=== PATIENT | male | born 1985 | race Caucasian/White ===

== ENCOUNTER 2025-02-12 20:57 | Emergency (ER) | payer BC ==
[~2025-02-12] VITALS: Ht 177.8 cm; Wt 81.6 kg
[2025-02-12 21:15] LABS: BASO # 0.1 10*3/uL (0.0-0.1); BASO % 0.5 % (0.0-1.0); EOS # 0.1 10*3/uL (0.0-0.4); HEMATOCRIT 43.6 % (42.0-52.0); MEAN CELL VOLUME 88.3 fl (80.0-94.0); MEAN CORPUSCULAR HGB 29.8 pg (27.0-31.0); MEAN CORPUSCULAR HGB CONC 33.7 g/dl (33.0-37.0); MEAN PLATELET VOLUME 9.8 fl (9.6-12.3); MONO # 0.8 10*3/uL (0.1-1.0); MONO % 8.8 % (3.0-9.0); NEUT # 5.8 10*3/uL (2.3-7.9); NEUT % 60.6 % (47.0-73.0); PLATELET COUNT AUTOMATED 297 10*3/uL (130-400); RED BLOOD COUNT 4.94 10*6/uL (4.50-5.90); RED CELL DISTRI WIDTH 13.2 % (0-14.5); WHITE BLOOD COUNT 9.6 10*3/uL (4.8-10.8)
[2025-02-12 21:36] LABS: ALKALINE PHOSPHATASE 76 U/L (46-116); BUN 25 mg/dl (9-23); CHLORIDE 107 mmol/L (98-107); POTASSIUM 3.7 mmol/L (3.4-5.1); SGPT/ALT 24 U/L (5-49); TOTAL PROTEIN 7.8 gm/dL (6.0-8.0)
[2025-02-12 21:37] LABS: ETHYL ALCOHOL < 3.0 mg/dl (<3)
[2025-02-12 22:44] LABS: BILIRUBIN Negative (Negative); BLOOD Negative (Negative); CLARITY Clear (Clear); COLOR Yellow (Yellow); GLUCOSE Negative (Negative); KETONE Trace (Negative); LEUKO ESTERASE Negative (Negative); NITRITE Negative (Negative); PH 5.5 (4.5-8.0); UROBILINOGEN 0.2 E.U./dl (0.0-1.0)
[2025-02-12] MEDS ORDERED: hydrOXYzine pamoate 25 MG CAP PO ONE (22:45)
[2025-02-12 22:49] LABS: URINE AMPHETAMINES Negative (1000ng/ml); URINE BARBITURATES Negative (200ng/ml); URINE BENZODIAZEPINES Negative (200ng/ml); URINE CANNABINOIDS (THC) Positive (50ng/ml); URINE COCAINE Negative (300ng/ml); URINE METHADONE Negative (300ng/ml); URINE OPIATES Negative (300ng/ml); URINE PHENCYCLIDINE Negative (25ng/ml)
[2025-02-12 22:50] LABS: EPITHELIAL CELLS 0-2; MUCOUS TRACE; WBC 0-2 wbc/hpf (0-5)
[2025-02-13] MEDS ORDERED: PROPRANOLOL HCL60 MG PO (08:15)
[2025-02-13] MEDS ORDERED: PROPRANOLOL HYDROCHLORIDE PO ONE (09:10)
== END 2025-02-13 09:46 ==
LOC: ED 20:57
PROVIDERS: Internal Medicine
DX: F31.9 Bipolar disorder, unspecified (principal)

== ENCOUNTER 2025-02-23 02:26 | Emergency (ER) | payer BC ==
[~2025-02-23 02:26] MED LIST: PROPRANOLOL HCL60 MG PO
[2025-02-23 02:45] LABS: BASO % 0.3 % (0.0-1.0); EOS % 0.5 % (1.0-4.0); MEAN CELL VOLUME 89.6 fl (80.0-94.0); MEAN CORPUSCULAR HGB 29.6 pg (27.0-31.0); MEAN CORPUSCULAR HGB CONC 33.1 g/dl (33.0-37.0); MEAN PLATELET VOLUME 9.8 fl (9.6-12.3); MONO # 0.5 10*3/uL (0.1-1.0); MONO % 9.2 % (3.0-9.0); NEUT # 3.2 10*3/uL (2.3-7.9); NEUT % 54.9 % (47.0-73.0); PLATELET COUNT AUTOMATED 201 10*3/uL (130-400); RED BLOOD COUNT 4.69 10*6/uL (4.50-5.90); RED CELL DISTRI WIDTH 13.2 % (0-14.5); WHITE BLOOD COUNT 5.9 10*3/uL (4.8-10.8)
[2025-02-23 03:02] LABS: BILIRUBIN Negative (Negative); BLOOD Negative (Negative); CLARITY Clear (Clear); COLOR Yellow (Yellow); GLUCOSE Negative (Negative); KETONE Trace (Negative); LEUKO ESTERASE Negative (Negative); NITRITE Negative (Negative)
[2025-02-23 03:06] LABS: ALKALINE PHOSPHATASE 79 U/L (46-116); BUN 14 mg/dl (9-23); CHLORIDE 105 mmol/L (98-107); POTASSIUM 3.3 mmol/L (3.4-5.1); SGPT/ALT 123 U/L (5-49); TOTAL PROTEIN 7.5 gm/dL (6.0-8.0)
[2025-02-23 03:07] LABS: ETHYL ALCOHOL < 3.0 mg/dl (<3)
[2025-02-23 03:09] LABS: URINE AMPHETAMINES Negative (1000ng/ml); URINE BARBITURATES Negative (200ng/ml); URINE BENZODIAZEPINES Negative (200ng/ml); URINE CANNABINOIDS (THC) Positive (50ng/ml); URINE COCAINE Negative (300ng/ml); URINE METHADONE Negative (300ng/ml); URINE OPIATES Negative (300ng/ml); URINE PHENCYCLIDINE Negative (25ng/ml)
[2025-02-23 03:32] LABS: RBC 0-2 rbc/hpf (0-2); WBC 0-2 wbc/hpf (0-5)
[2025-02-23] MEDS ORDERED: LORazepam 2 MG TAB PO ONE (04:15)
[2025-02-23] MEDS ORDERED: DIVALPROEX SOD250 MG PO (10:13)
[2025-02-23] MEDS ORDERED: DIVALPROEX SOD125 MG PO (10:14)
[2025-02-23] MEDS ORDERED: TRAZODONE50 MG PO (10:14)
[2025-02-23] MEDS ORDERED: HYDROXYZINE PAM50 MG PO (10:16)
[2025-02-23] MEDS ORDERED: PRISTIQ100 MG PO (10:16)
== END 2025-02-23 05:54 | disposition left against medical advice (07) ==
LOC: ED 02:26
PROVIDERS: Internal Medicine
DX: E87.6 Hypokalemia (principal); R74.01 Elevation of levels of liver transaminase levels; Z53.29 Procedure and treatment not carried out because of patient's decision for other reasons

== ENCOUNTER 2025-02-23 09:37 | Emergency (ER) | payer BC ==
[~2025-02-23] VITALS: Wt 86.2 kg
[2025-02-23 09:54] LABS: BASO % 0.3 % (0.0-1.0); EOS % 0.1 % (1.0-4.0); MEAN CELL VOLUME 89.2 fl (80.0-94.0); MEAN CORPUSCULAR HGB 29.9 pg (27.0-31.0); MEAN CORPUSCULAR HGB CONC 33.5 g/dl (33.0-37.0); MEAN PLATELET VOLUME 9.7 fl (9.6-12.3); MONO # 0.6 10*3/uL (0.1-1.0); MONO % 8.3 % (3.0-9.0); NEUT # 5.1 10*3/uL (2.3-7.9); NEUT % 69.6 % (47.0-73.0); PLATELET COUNT AUTOMATED 231 10*3/uL (130-400); RED BLOOD COUNT 4.82 10*6/uL (4.50-5.90); RED CELL DISTRI WIDTH 13.2 % (0-14.5); WHITE BLOOD COUNT 7.4 10*3/uL (4.8-10.8)
[2025-02-23 09:55] LABS: BILIRUBIN Negative (Negative); BLOOD Negative (Negative); CLARITY Clear (Clear); COLOR Yellow (Yellow); GLUCOSE Negative (Negative); KETONE Trace (Negative); LEUKO ESTERASE Negative (Negative); NITRITE Negative (Negative); PH 6.5 (4.5-8.0); SPECIFIC GRAVITY 1.015 (1.001-1.030)
[2025-02-23] MEDS ORDERED: DIVALPROEX SOD250 MG PO (10:13)
[2025-02-23] MEDS ORDERED: TRAZODONE50 MG PO (10:14)
[2025-02-23] MEDS ORDERED: DIVALPROEX SOD125 MG PO (10:14)
[2025-02-23] MEDS ORDERED: PRISTIQ100 MG PO (10:16)
[2025-02-23] MEDS ORDERED: HYDROXYZINE PAM50 MG PO (10:16)
[2025-02-23 10:18] LABS: BACTERIA 1+; MUCOUS 2+; WBC 0-2 wbc/hpf (0-5)
[2025-02-23 10:20] LABS: ALKALINE PHOSPHATASE 81 U/L (46-116); BUN 14 mg/dl (9-23); CHLORIDE 104 mmol/L (98-107); CPK 575 U/L (34-171); POTASSIUM 3.4 mmol/L (3.4-5.1); SGPT/ALT 139 U/L (5-49); TOTAL PROTEIN 8.3 gm/dL (6.0-8.0)
[2025-02-23 10:22] LABS: URINE AMPHETAMINES Negative (1000ng/ml); URINE BARBITURATES Negative (200ng/ml); URINE BENZODIAZEPINES Negative (200ng/ml); URINE CANNABINOIDS (THC) Positive (50ng/ml); URINE COCAINE Negative (300ng/ml); URINE METHADONE Negative (300ng/ml); URINE OPIATES Negative (300ng/ml); URINE PHENCYCLIDINE Negative (25ng/ml)
[2025-02-23 10:32] LABS: ETHYL ALCOHOL < 3.0 mg/dl (<3)
[2025-02-23] MEDS ORDERED: SODIUM CHLORIDE 0.9% 1,000 ML IV ONE ×3 (10:55→13:55)
[2025-02-23] MEDS ORDERED: hydrOXYzine pamoate 25 MG CAP PO ONE (14:55)
== END 2025-02-23 18:21 ==
LOC: ED 09:37
PROVIDERS: Emergency Medicine
DX: F31.9 Bipolar disorder, unspecified (principal); Z79.899 Other long term (current) drug therapy